=== PATIENT | female | born 1965 | race Caucasian/White ===

== ENCOUNTER → 2020-02-10 | Outpatient (CLI) | payer BC ==
--- NOTE | 2020-02-10 15:15 | US ---
EXAMINATION TYPE: US extremity nonvasc complt LT DATE OF EXAM: 02/10/2020 COMPARISON: NONE CLINICAL HISTORY: M71.22 Synovial cyst of popliteal space [Arcos], l. Posterior left knee Posterior left knee scanned. Fluid collection visualized with internal echoes= 4.9 x 2.6 x 1.3 cm IMPRESSION: Small to moderate size elongated fluid collection favors popliteal cyst based on locatio n with some internal debris on the images saved.
== END | disposition home or self-care (01) ==
LOC: RADUSWWP 14:48
PROVIDERS: ATTEND Family Medicine
DX: M71.22 Synovial cyst of popliteal space [Baker], left knee (principal)

== ENCOUNTER → 2020-11-09 | Outpatient (CLI) | payer BC ==
--- NOTE | 2020-11-13 11:36 | MM ---
Reason for exam: screening (asymptomatic). History: Patient is postmenopausal. Family history of breast cancer in mother at age 72 and breast cancer in sister at age 45. Physical Findings: A clinical breast exam by your physician is recommended on an annual basis and results should be correlated with mammographic findings. MG Screening Mammo w CAD Bilateral CC and MLO view(s) were taken. There are scattered fibroglandular densities. There is no discrete abnormality. Benign bilateral axillary lymph nodes redemonstrated. ASSESSMENT: Negative, BI-RAD 1 RECOMMENDATION: Routine screening mammogram of both breasts in 1 year.
== END ==
LOC: RADMAMWWP 15:12
PROVIDERS: ATTEND Family Medicine
DX: Z12.31 Encounter for screening mammogram for malignant neoplasm of breast (principal); Z78.0 Asymptomatic menopausal state; Z80.3 Family history of malignant neoplasm of breast
CPT/HCPCS: 77067

== ENCOUNTER → 2021-02-14 | Outpatient (CLI) | payer BC ==
--- NOTE | 2021-02-15 08:44 | CT ---
EXAMINATION TYPE: CT chest w con DATE OF EXAM: 02/14/2021 COMPARISON: Radiographic correlation not available. HISTORY: 55-year-old female R93.89, Abnormal findings on chest x-ray, chest nodule. TECHNIQUE: Contiguous axial scanning of the chest after the administration of 100 mL of Isovue 300. Coronal/sagittal reconstructions performed. CT DLP: 768mGycm. Automatic exposure control utilized for a dose reduction. FINDINGS: Heart normal size without pericardial effusion. Prominent epicardial fat pad along the right side of the heart. Borderline ectasia aortic root at 3.6 cm and ascending aorta at 3.6 cm. Bovine configuration to the a ortic arch. No thoracic lymphadenopathy by CT size criteria. Tiny 3 mm subpleural pulmonary nodule lateral right upper lobe, axial image 12. 8mm calcified granuloma lateral left midlung, axial image 21. No consolidation or pleural effusion. There may be minimal emphysematous change. Visualized upper abdomen shows cholecystectomy clips. Bones: Slight dextroconvex curvature along the mid thoracic spine. No osseous destructive process. IMPRESSION: 1. Correlate for any smoking history. There may be minimal emphysematous change. 2. An 8 mm benign calcified granuloma in the lateral left midlung. Correlate as to the location of th e patient's abnormal radiographic nodule. 3. A tiny 3 mm pulmonary nodule in the right upper lobe is of questionable clinical significance. A 1 2 month follow-up can be obtained as a precautionary measure if desired.
== END | disposition home or self-care (01) ==
LOC: RADCTMAIN 16:37
PROVIDERS: ATTEND Family Medicine
DX: R91.1 Solitary pulmonary nodule (principal); L92.9 Granulomatous disorder of the skin and subcutaneous tissue, unspecified
CPT/HCPCS: 71260; Q9967

== ENCOUNTER → 2022-01-09 | Outpatient (CLI) | payer BC ==
--- NOTE | 2022-01-09 16:15 | US ---
EXAMINATION TYPE: US thyroid st tissue head/neck DATE OF EXAM: 01/09/2022 COMPARISON: US CLINICAL HISTORY: E3.9 HYPOTHYROID. Hypothyroid GLAND SIZE: Right Lobe: 4.3 x 1.8 x 1.6 cm Overall Parenchyma: Slightly heterogeneous Left Lobe: 4.2 x 1.4 x 1.3 cm Overall Parenchyma: Slightly heterogeneous Isthmus Thickness: 0.4 cm NODULES RIGHT: # of nodules measured on right: 0 LEFT: # of nodules measured on left: 0 ISTHMUS: # of nodules measured in the isthmus: 0 Bilateral neck scanned, no evidence of lymphadenopathy. Slightly heterogeneous thyroid bilaterally wi th no evidence of nodules, similar findings to prior in 2016. IMPRESSION: 1. No suspicious nodules thyroid ultrasound.
== END | disposition home or self-care (01) ==
LOC: RADUSWWP 15:15
PROVIDERS: ATTEND Internal Medicine
DX: E03.9 Hypothyroidism, unspecified (principal)
CPT/HCPCS: 76536

== ENCOUNTER → 2022-08-20 | Outpatient (CLI) | payer BC ==
--- NOTE | 2022-08-21 10:10 | MM ---
Reason for Exam: Screening (asymptomatic). Last mammogram was performed 1 year(s) and 9 month(s) ago. Patient History: Menarche at age 20. First Full-Term at age 22. Left ovary removed at age 40. Right ovary removed at age 40. Hysterectomy at age 40. Postmenopausal. Sister had breast cancer, age 45. Mother had breast cancer, age 72. Risk Values: [place]ashon 5 year model risk: 4.4%. NCI Lifetime model risk: 27.2%. Prior Study Comparison: 11/09/2020 Bilateral Screening Mammogram, [facility]. Tissue Density: There are scattered fibroglandular densities. Findings: Analyzed By CAD. Pattern is symmetrical and stable. No significant interval change is evident. No suspicious groups of microcalcifications, spiculated or lobular masses, architectural distortion or other secondary signs of malignancy are mammographically apparent. Overall Assessment: Benign, BI-RAD 2 Management: Screening Mammogram of both breasts in 1 year. A negative mammogram report should not preclude additional follow up of suspicious palpable abnormalities. Patient should continue monthly self breast exam. A clinical breast exam by your physician is recommended on an annual basis and results should be correlated with mammographic findings. Electronically signed and approved by: Howard Powell D.O. Radiologis
== END | disposition home or self-care (01) ==
LOC: RADMAMWWP 15:12
PROVIDERS: ATTEND Internal Medicine
DX: Z12.31 Encounter for screening mammogram for malignant neoplasm of breast (principal); Z78.0 Asymptomatic menopausal state; Z80.3 Family history of malignant neoplasm of breast; Z90.721 Acquired absence of ovaries, unilateral
CPT/HCPCS: 77063; 77067

== ENCOUNTER → 2023-09-02 | Outpatient (CLI) | payer BC ==
--- NOTE | 2023-09-07 14:30 | MM ---
Reason for Exam: Screening (asymptomatic). Last mammogram was performed 1 year(s) and 1 month(s) ago. Patient History: Menarche at age 20. First Full-Term at age 22. Left ovary removed at age 40. Right ovary removed at age 40. Hysterectomy at age 40. Postmenopausal. Sister had breast cancer, age 45. Mother had breast cancer, age 72. Risk Values: [place]on 5 year model risk: 4.6%. NCI Lifetime model risk: 26.7%. Prior Study Comparison: 11/09/2020 Bilateral Screening Mammogram, [facility]. 08/20/2022 Bilateral MG 3D screening mammo w/cad, [facility]. Tissue Density: There are scattered fibroglandular densities. Findings: Analyzed By CAD. The pattern is symmetrical and stable. No significant interval changes. No suspicious groups of microcalcifications, spiculated or lobular masses, architectural distortion or other secondary signs of malignancy are mammographically apparent. Overall Assessment: Benign, BI-RAD 2 Management: Screening Mammogram of both breasts in 1 year. A negative mammogram report should not preclude additional follow up of suspicious palpable abnormalities. Patient should continue monthly self breast exam. A clinical breast exam by your physician is recommended on an annual basis and results should be correlated with mammographic findings. Electronically signed and approved by: Howard Powell D.O. Radiologis
== END | disposition home or self-care (01) ==
LOC: RADMAMWWP 15:06
PROVIDERS: ATTEND Internal Medicine
DX: Z12.31 Encounter for screening mammogram for malignant neoplasm of breast (principal); Z78.0 Asymptomatic menopausal state; Z80.3 Family history of malignant neoplasm of breast
CPT/HCPCS: 77063; 77067

== ENCOUNTER → 2024-01-02 | Outpatient (CLI) | payer BC ==
--- NOTE | 2024-01-02 17:00 | US ---
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 Several images were performed with Valsalva and standing positions. FINDINGS/IMPRESSION: No discrete lesion or hernia at patients palpable area of concern. No fluid col lection identified.
== END | disposition home or self-care (01) ==
LOC: RADUSWWP 14:39
PROVIDERS: ATTEND Surgery Plastic and Reconstructive Surgery
DX: R19.09 Other intra-abdominal and pelvic swelling, mass and lump (principal)
CPT/HCPCS: 76705

== ENCOUNTER → 2024-03-31 | Outpatient (CLI) | payer BC ==
--- NOTE | 2024-04-27 13:12 | US ---
Site ID [facility] Patient Ramona Hernandez L ID [id number] Age/Gender: 59Y, F Order # N/A Procedure US LIVER Date 03/31/2024 7:17:00 AM INDICATION: Patient age: Female; 59 year old; Reason for study: Right upper quadrant pain COMPARISON: Abdominal ultrasound 01/02/2024. TECHNIQUE: Multiple grayscale and color doppler ultrasound images of the right upper abdomen obtained utilizing transabdominal imaging. FINDINGS: PANCREAS: The visualized portions of the pancreas are unremarkable. LIVER: The liver demonstrates hyperechoic echotexture, which is difficult to penetrate sonographically. This ultrasound appearance also degrades sensitivity for the detection of masses. However, there is no gr oss evidence of dilated ducts, cystic structures, or solid mass. . Measures 17.3 cm in greatest dimen lucinda. GALLBLADDER: The gallbladder is surgically removed. The common duct measures approximately 6 mm which is within no rmal limits. RIGHT KIDNEY: The right kidney measures 9.4 x 4.7 x 4.8 cm, without evidence of hydronephrosis, shadowing calculus, or contour deforming solid mass. Renal parenchymal echogenicity is within normal limits. IMPRESSION: 1. No sonographic evidence for acute process. 2. Hepatic steatosis.
--- NOTE | 2024-04-27 13:16 | US ---
Site ID [facility] Patient Ramona Hernandez L ID [id number] Age/Gender: 59Y, F Order # N/A Procedure US abdomen limited Date 03/31/2024 7:26:00 AM INDICATION: Patient age: Female; 59 year old; Reason for study: Abdominal wall lump, pain. COMPARISON: Abdominal ultrasound 01/02/2024. TECHNIQUE: Multiple grayscale ultrasound images of the abdomen at patient's region of palpable abnormality were obtained. FINDINGS/IMPRESSION: No discrete lesion or hernia identified at patient's area of concern. No fluid collection demonstrate d. If there is continued clinical concern, consider further evaluation with CT.
== END | disposition home or self-care (01) ==
LOC: RADUSWWP 12:00
PROVIDERS: ATTEND Surgery Plastic and Reconstructive Surgery
DX: R10.11 Right upper quadrant pain (principal); R19.00 Intra-abdominal and pelvic swelling, mass and lump, unspecified site; K76.0 Fatty (change of) liver, not elsewhere classified
CPT/HCPCS: 76705

== ENCOUNTER → 2024-07-06 | Outpatient (CLI) | payer BC ==
[2024-07-06 11:25] LABS: Basophils # (A) 0.03 X 10*3/uL (0.00-0.10); Basophils % (A) 0.4 %; Eosinophils # (A) 0.15 X 10*3/uL (0.04-0.35); Eosinophils % (A) 2.1 %; HCT 42.4 % (37.2-46.3); Lymphocytes # (A) 2.56 X 10*3/uL (0.90-5.00); MCH 30.6 pg (27.0-32.0); MCV 92.8 FL (80.0-97.0); Mean Platelet Volume 12.9 FL (9.5-12.2); Monocytes # (A) 0.79 X 10*3/uL (0.20-1.00); Monocytes % (A) 11.1 %; NRBC Per 100 WBC 0 X 10*3/uL (0.00-0.01); Neutrophils # (A) 3.57 X 10*3/uL (1.80-7.70); Neutrophils % (A) 50.1 %; Platelet Count 202 X 10*3/uL (140-440); RBC 4.57 X 10*6/uL (4.10-5.20); RDW 13.2 % (11.5-14.5); WBC 7.12 X 10*3/uL (4.50-10.00)
[2024-07-06 11:49] LABS: ALT 23 U/L (8-44); AST 20 U/L (13-35); Albumin 4.3 g/dL (3.8-4.9); Albumin/Globulin Ratio 1.72 Ratio (1.60-3.17); Alkaline Phosphatase 85 U/L (41-126); BUN/Creat Ratio 21.25 Ratio (12.00-20.00); Calcium 9.7 mg/dL (8.7-10.3); Carbon Dioxide 25.5 mmol/L (21.6-31.8); Chloride 104 mmol/L (96-109); Chol/HDL Ratio 4.13 Ratio; Globulin 2.5 g/dL (1.6-3.3); Glucose 93 mg/dL (70-110); LDL Cholesterol,Calculated 115.5 mg/dL (0.0-131.0); Magnesium 2.1 mg/dL (1.5-2.4); Potassium 4.4 mmol/L (3.5-5.5); Sodium 138 mmol/L (135-145); T4, Free (Free Thyroxine) 1.28 ng/dL (0.80-1.80); Total Bilirubin 0.4 mg/dL (0.3-1.2); Total Protein 6.8 g/dL (6.2-8.2)
== END | disposition home or self-care (01) ==
LOC: LABWHC1 06:58
PROVIDERS: ATTEND Internal Medicine
DX: I10 Essential (primary) hypertension (principal); E78.5 Hyperlipidemia, unspecified; E03.9 Hypothyroidism, unspecified
CPT/HCPCS: 36415; 80053; 80061; 83735; 84439; 84443; 85025

== ENCOUNTER → 2025-01-04 | Outpatient (CLI) | payer BC ==
[2025-01-04 11:24] LABS: INR 0.9 (<1.2); Partial Thromboplastin Time 24.5 sec (22.0-30.0); Prothrombin Time 9.8 sec (10.0-12.5)
[2025-01-04 15:57] LABS: HCT 40.6 % (37.2-46.3); HGB 13.3 g/dL (12.0-15.0); MCH 30.4 pg (27.0-32.0); MCHC 32.8 g/dL (32.0-37.0); MCV 92.9 FL (80.0-97.0); Mean Platelet Volume 12.9 FL (9.5-12.2); NRBC Per 100 WBC 0 X 10*3/uL (0.00-0.01); Platelet Count 233 X 10*3/uL (140-440); RBC 4.37 X 10*6/uL (4.10-5.20); RDW 13.1 % (11.5-14.5); WBC 7.18 X 10*3/uL (4.50-10.00)
[2025-01-04 16:07] LABS: Prealbumin 18.9 mg/dL (18.0-42.0)
[2025-01-04 16:27] LABS: % Iron Saturation 33.68 (12.00-45.00); ALT 19 U/L (8-44); AST 19 U/L (13-35); Albumin 4.3 g/dL (3.8-4.9); Albumin/Globulin Ratio 1.65 Ratio (1.60-3.17); Alkaline Phosphatase 105 U/L (41-126); Blood Urea Nitrogen 18.8 mg/dL (9.0-27.0); Calcium 9.9 mg/dL (8.7-10.3); Carbon Dioxide 22.2 mmol/L (21.6-31.8); Chloride 103 mmol/L (96-109); Chol/HDL Ratio 3.11 Ratio; Globulin 2.6 g/dL (1.6-3.3); Glucose 116 mg/dL (70-110); Iron 130 UG/DL (50-170); LDL Cholesterol,Calculated 92.8 mg/dL (0.0-131.0); Magnesium 2.1 mg/dL (1.5-2.4); Phosphorus 3.4 mg/dL (2.4-5.1); Potassium 4.7 mmol/L (3.5-5.5); Sodium 137 mmol/L (135-145); Total Bilirubin 0.3 mg/dL (0.3-1.2); Total Iron Binding Capacity 386 UG/DL (228-460); Total Protein 6.9 g/dL (6.2-8.2)
[2025-01-05 11:12] LABS: Zinc, Serum 51 ug/dL (60-130)
[2025-01-06 06:13] LABS: Vitamin A 43 ug/dL (38-106)
== END | disposition home or self-care (01) ==
LOC: LABWHC1 10:14
PROVIDERS: ATTEND Surgery Plastic and Reconstructive Surgery
DX: E66.01 Morbid (severe) obesity due to excess calories (principal); K76.0 Fatty (change of) liver, not elsewhere classified; D50.8 Other iron deficiency anemias; E44.0 Moderate protein-calorie malnutrition; E89.1 Postprocedural hypoinsulinemia; N19 Unspecified kidney failure; K50.90 Crohn's disease, unspecified, without complications; T56.894A Toxic effect of other metals, undetermined, initial encounter; E55.9 Vitamin D deficiency, unspecified; K74.1 Hepatic sclerosis
CPT/HCPCS: 36415; 80053; 80061; 82306; 82525; 82607; 82728; 82746; 83036; 83540; 83550; 83735; 83970; 84100; 84134; 84255; 84425; 84443; 84590; 84630; 85027; 85610; 85730

== ENCOUNTER → 2025-01-05 | Outpatient (CLI) | payer BC ==
--- NOTE | 2025-01-05 08:44 | US ---
EXAMINATION TYPE: US liver DATE OF EXAM: 01/05/2025 COMPARISON: US 03/31/2024 CLINICAL INDICATION: Female, 59 years old with history of K76.0 FATTY (CHANGE OF) LIVER, NOT ELSEWHER E CLASS; Fatty liver. Hx cholecystectomy, fatty tumor removed from stomach. TECHNIQUE: Grayscale and color Doppler imaging of the right upper quadrant. FINDINGS: EXAM MEASUREMENTS: Liver Length: 16.1 cm Gallbladder: Surgically absent CBD: 0.39 cm, color Doppler imaging was utilized to isolate the common bile duct for measurement. Right Kidney: 12.1 x 6.0 x 4.5 cm MANAGER QUALITY NOTES: Exam is limited due to gas Pancreas: Only portions of the pancreatic head and body are seen. Tail is obscured by bowel gas shad owing. Liver: Appears very coarse, heterogeneous - limiting evaluation. The degree of sound beam attenuat ion shows some improvement from 03/31/2024. Gallbladder: Surgically absent Evidence for sonographic Bustamante's sign: No CBD: Appears wnl Right Kidney: Hypoechoic area seen lower medial: 3.4 x 2.3 x 2.6 cm. There is posterior through tr ansmission. However, the lesion was not seen on 03/31/2024. No hydronephrosis. IMPRESSION: 1. Moderate to severe hepatic steatosis though we suspect some improvement compared to 03/31/2024. 2. Status post cholecystectomy. No biliary ductal dilatation. 3. A 3.4 cm hypoechoic lesion within the lower pole of the right kidney not seen on the 03/31/2024 exam . Given posterior through-transmission, a cyst is suspected. Internal echoes could represent artifact or debris. Recommend 3 month follow-up ultrasound to ensure stability and attempt more accurate tatianna acterization. [facility], , 01/05/2025 8:42 AM
== END | disposition home or self-care (01) ==
LOC: RADUSWWP 06:50
PROVIDERS: ATTEND Surgery Plastic and Reconstructive Surgery
DX: K76.0 Fatty (change of) liver, not elsewhere classified (principal); Z90.49 Acquired absence of other specified parts of digestive tract
CPT/HCPCS: 76705